=== PATIENT | male | born 1965 | race African-American/Black ===

== ENCOUNTER 2021-10-05 00:53 | Emergency (ER) | payer OTHER, MEDICAID ==
[~2021-10-05] VITALS: Ht 182.9 cm; Wt 68.0 kg
[2021-10-05] MEDS ORDERED: ONDANSETRON 4MG ODT PO STA (01:17)
[2021-10-05 02:43] LABS: BASOPHILS % 0.3 % (0.0-2.0); EOSINOPHILS % 0.5 % (0.0-5.0); HEMATOCRIT. 49.3 % (42.0-52.0); HEMOGLOBIN. 16.9 g/dL (14.0-18.0); LYMPHOCYTES % 35.1 % (20.0-50.0); MEAN CORPUSCULAR HEMOGLOBIN 32.8 pg (28.0-32.0); MEAN CORPUSCULAR VOLUME 95.8 fL (80.0-94.0); MEAN PLATELET VOLUME 8.7 fl (7.4-10.4); MONOCYTES % 6.1 % (2.0-8.0); PLATELET 168 x1000/uL (130-400); RED BLOOD CELL COUNT 5.14 mill/uL (4.7-6.1)
[2021-10-05 02:54] LABS: CHLORIDE 89 mEq/L (98-107)
[2021-10-05] MEDS ORDERED: SODIUM CHLORIDE 0.9% 1,000 ML IV ONE (03:00)
[2021-10-05] MEDS ORDERED: CHLORPROMAZINE HCL 25MG/1ML AMP IM ONE (03:00)
[2021-10-05 03:38] LABS: ETHANOL BLOOD 320 mg/dL
[2021-10-05 06:00] VITALS: BP 106/60
== END 2021-10-05 06:10 | disposition home or self-care (01) ==
LOC: ER 00:53
DX: F10.129 Alcohol abuse with intoxication, unspecified (principal); I10 Essential (primary) hypertension; Y90.8 Blood alcohol level of 240 mg/100 ml or more
CPT/HCPCS: 36415; 80053; 80320; 83690; 85025; 96360; 96372; 99283; J3230; Q0162; G0480

== ENCOUNTER 2021-10-05 07:19 | Emergency (ER) | payer MEDICAID, OTHER ==
[~2021-10-05] VITALS: Ht 182.9 cm; Wt 62.0 kg
[2021-10-05 07:25] VITALS: BP 120/57
[2021-10-05] MEDS ORDERED: ASPIRIN 81MG TABLET PO ONE (08:45)
== END 2021-10-05 08:44 | disposition left against medical advice (07) ==
LOC: ER 07:19 → CANBEDREQ 16:12
DX: R07.89 Other chest pain (principal); I10 Essential (primary) hypertension
CPT/HCPCS: 93005; 99283

== ENCOUNTER 2022-11-03 10:50 | Emergency (ER) | payer OTHER ==
[~2022-11-03] VITALS: Ht 177.8 cm; Wt 80.0 kg
[2022-11-03] MEDS ORDERED: SODIUM CHLORIDE 0.9% 1,000 ML IV ONE (11:15)
[2022-11-03 13:52] VITALS: BP 134/73
[2022-11-03 14:39] LABS: CLARITY URINE CLEAR (CLEAR); COLOR URINE YELLOW (YELLOW); KETONES URINE NEGATIVE (NEGATIVE); LEUKOCYTE ESTERASE URINE NEGATIVE (NEGATIVE); NITRITE URINE NEGATIVE (NEGATIVE); OCCULT BLOOD URINE NEGATIVE (NEGATIVE); PH URINE 5.5 (4.5-8.0); PROTEIN URINE NEGATIVE (NEGATIVE); SPECIFIC GRAVITY URINE 1.004 (1.005-1.030); UROBILINOGEN URINE 0.2 E.U./dL (0.2-1.0)
[2022-11-03 15:19] LABS: *AMPHETAMINES SCREEN URINE NEGATIVE (NEGATIVE); *BARBITURATES SCREEN URINE NEGATIVE (NEGATIVE); *BENZODIAZEPINES SCREEN URINE NEGATIVE (NEGATIVE); *COCAINE SCREEN URINE NEGATIVE (NEGATIVE); CANNABINOID URINE SCREEN NEGATIVE (NEGATIVE); METHADONE URINE SCREEN NEGATIVE (NEGATIVE); OPIATES URINE SCREEN NEGATIVE (NEGATIVE); PHENCYCLIDINE URINE SCREEN NEGATIVE (NEGATIVE)
== END 2022-11-03 14:40 | disposition left against medical advice (07) ==
LOC: ER 10:58
DX: R53.1 Weakness (principal); R55 Syncope and collapse; I10 Essential (primary) hypertension; F10.229 Alcohol dependence with intoxication, unspecified; Y90.0 Blood alcohol level of less than 20 mg/100 ml
CPT/HCPCS: 70450; 80305; 81003; 93005; 99285; J7030

== ENCOUNTER 2023-08-07 05:28 | Inpatient (IN) | payer OTHER ==
[~2023-08-07] VITALS: Ht 180.3 cm; Wt 56.2 kg
[2023-08-07] MEDS ORDERED: ONDANSETRON HCL 4MG/2ML INJ IV STA (05:35)
[2023-08-07] MEDS ORDERED: LORAZEPAM 2MG/ML CPJ IV STA (05:35)
[2023-08-07] MEDS ORDERED: FOLIC ACID 1 MG, THIAMINE HCL 100 MG, MVI, ADULT NO.1 10 ML in DEXTROSE 5% WATER 1,000 ML IV ONE ×4 (05:45)
[2023-08-07 05:57] LABS: BASOPHILS % 0.7 % (0.0-2.0); EOSINOPHILS % 0.1 % (0.0-5.0); HEMATOCRIT. 48.7 % (42.0-52.0); HEMOGLOBIN. 16.3 g/dL (14.0-18.0); LYMPHOCYTES % 36.5 % (20.0-50.0); MEAN CORPUSCULAR HEMOGLOBIN 33.1 pg (28.0-32.0); MEAN CORPUSCULAR HGB CONC 33.5 g/dL (31.0-37.0); MEAN CORPUSCULAR VOLUME 98.9 fL (80.0-94.0); MEAN PLATELET VOLUME 7.1 fl (7.4-10.4); MONOCYTES % 4.5 % (2.0-8.0); NEUTROPHILS % 58.2 % (40.0-76.0); PLATELET 324 x1000/uL (130-400); RED BLOOD CELL COUNT 4.93 mill/uL (4.7-6.1); RED CELL DISTRIBUTION WIDTH 13.9 % (11.6-14.6); WHITE BLOOD COUNT 5.4 x1000/uL (4.5-11.0)
[2023-08-07 06:13] LABS: ALANINE AMINOTRANSFERASE 63 IU/L (10-49); ALBUMIN 4.8 g/dL (3.2-4.8); AMMONIA < 10 uMol/L (<32); ASPARTATE AMINOTRANSFERASE 133 IU/L (<34); BILIRUBIN TOTAL 1.5 mg/dL (0.1-1.0); CALCIUM 9.1 mg/dL (8.7-10.4); CARBON DIOXIDE 21 mEq/L (21-32); CHLORIDE 96 mEq/L (98-107); CREATININE 1.4 mg/dL (0.6-1.3); ETHANOL BLOOD 125 mg/dL (<10); GLUCOSE 189 mg/dL (70-105); POTASSIUM 3.7 mEq/L (3.5-5.1); PROTEIN TOTAL 6.9 g/dL (6.0-8.3); SODIUM 138 mEq/L (136-145); UREA NITROGEN BLOOD 12 mg/dL (9-23)
[2023-08-07] MEDS ORDERED: LORAZEPAM 4MG/ML VIAL IV NR (06:15)
[2023-08-07] MEDS ORDERED: CHLORDIAZEPOXIDE 25MG CAPSULE PO ONE (06:15)
[2023-08-07] MEDS ORDERED: LORAZEPAM 2MG/ML CPJ IV ONE (08:15)
[2023-08-07] MEDS ORDERED: LORAZEPAM 4MG/ML VIAL IV SCH (08:45)
[2023-08-07 12:00] VITALS: BP 149/110; PULSE 119; RESP 20; TEMP 98.3
[2023-08-07] MEDS ORDERED: ACETAMINOPHEN 325MG TABLET PO PRN (14:30)
[2023-08-07] MEDS ORDERED: TRAMADOL 50MG TABLET PO PRN (14:30)
[2023-08-07] MEDS ORDERED: DOCUSATE SODIUM 100MG CAPSULE PO PRN (14:30)
[2023-08-07] MEDS ORDERED: ONDANSETRON HCL 4MG/2ML INJ IV PRN (14:30)
[2023-08-07] MEDS ORDERED: LORAZEPAM 2MG/ML CPJ IV PRN (14:30)
[2023-08-07] MEDS ORDERED: GUAIFENESIN 200MG/10ML SUGAR FREE UDC PO PRN (14:30)
[2023-08-07] MEDS ORDERED: CLONIDINE 0.1MG TABLET PO PRN (14:30)
[2023-08-07] MEDS ORDERED: NALOXONE HCL 0.4MG/ML VIAL IV PRN (14:45)
[2023-08-07] MEDS: SODIUM CHLORIDE 0.45% 1,000 ML IV SCH (15:06)
[2023-08-07] MEDS: CHLORDIAZEPOXIDE 25MG CAPSULE PO SCH ×2 (15:18→23:14)
[2023-08-07] MEDS: THIAMINE HCL 100MG TABLET PO SCH (15:18)
[2023-08-07] MEDS: AMLODIPINE 10MG TABLET PO SCH (15:19)
[2023-08-07] MEDS: MULTIVITAMINS,THER W-MINERALS TABLET PO SCH (15:19)
[2023-08-07 16:00] VITALS: BP 176/115; PULSE 113; RESP 18; TEMP 97.4
[2023-08-07 20:00] VITALS: BP 125/88; PULSE 112; RESP 18; TEMP 97.3
[2023-08-07] MEDS: LORAZEPAM 4MG/ML VIAL IV PRN (22:09)
[2023-08-08] VITALS: BP 136/93; PULSE 110; RESP 16; TEMP 97
[2023-08-08 04:00] VITALS: BP 125/87; PULSE 105; RESP 18; TEMP 97.4
[2023-08-08] MEDS: CHLORDIAZEPOXIDE 25MG CAPSULE PO SCH ×3 (06:35→21:08)
[2023-08-08] MEDS: SODIUM CHLORIDE 0.45% 1,000 ML IV SCH ×2 (06:35→20:19)
[2023-08-08 08:00] VITALS: BP 121/81; PULSE 77; RESP 18; TEMP 97.5
[2023-08-08] MEDS: FOLIC ACID 1MG TABLET PO SCH (09:02)
[2023-08-08] MEDS: THIAMINE HCL 100MG TABLET PO SCH (09:02)
[2023-08-08] MEDS: MULTIVITAMINS,THER W-MINERALS TABLET PO SCH (09:02)
[2023-08-08] MEDS: AMLODIPINE 10MG TABLET PO SCH (09:03)
[2023-08-08 09:24] LABS: BASOPHILS % 0.8 % (0.0-2.0); EOSINOPHILS % 1.1 % (0.0-5.0); HEMATOCRIT. 43.3 % (42.0-52.0); HEMOGLOBIN. 14.6 g/dL (14.0-18.0); LYMPHOCYTES % 35.7 % (20.0-50.0); MEAN CORPUSCULAR HEMOGLOBIN 33.2 pg (28.0-32.0); MEAN CORPUSCULAR HGB CONC 33.7 g/dL (31.0-37.0); MEAN CORPUSCULAR VOLUME 98.5 fL (80.0-94.0); MONOCYTES % 5.6 % (2.0-8.0); NEUTROPHILS % 56.8 % (40.0-76.0); PLATELET 193 x1000/uL (130-400); RED BLOOD CELL COUNT 4.39 mill/uL (4.7-6.1); RED CELL DISTRIBUTION WIDTH 13.7 % (11.6-14.6); WHITE BLOOD COUNT 4.5 x1000/uL (4.5-11.0)
[2023-08-08 09:26] LABS: ALANINE AMINOTRANSFERASE 66 IU/L (10-49); ALBUMIN 4.1 g/dL (3.2-4.8); ASPARTATE AMINOTRANSFERASE 180 IU/L (<34); CALCIUM 9.2 mg/dL (8.7-10.4); CARBON DIOXIDE 26 mEq/L (21-32); CHLORIDE 97 mEq/L (98-107); CHOLESTEROL 159 mg/dL (<200); CREATININE 1.2 mg/dL (0.6-1.3); GLUCOSE 116 mg/dL (70-105); HDL CHOLESTEROL 79 mg/dL (>55); LDL CHOLESTEROL 87 mg/dL (5-100); POTASSIUM 3.4 mEq/L (3.5-5.1); PROTEIN TOTAL 5.9 g/dL (6.0-8.3); SODIUM 136 mEq/L (136-145); TRIGLYCERIDE 105 mg/dL (0-150); UREA NITROGEN BLOOD 18 mg/dL (9-23)
[2023-08-08 12:00] VITALS: BP 118/67; PULSE 103; RESP 18; TEMP 97
[2023-08-08] MEDS ORDERED: POTASSIUM CHLORIDE 20MEQ TABLET SR PO NR (12:00)
[2023-08-08 16:00] VITALS: BP 125/82; PULSE 109; RESP 20; TEMP 97.5
[2023-08-08 20:00] VITALS: BP 152/78; PULSE 101; RESP 20; TEMP 97.5
[2023-08-09] VITALS: BP 132/82; PULSE 87; RESP 20; TEMP 97.3
[2023-08-09 04:00] VITALS: BP 137/86; PULSE 93; RESP 16; TEMP 97.5
[2023-08-09] MEDS: CHLORDIAZEPOXIDE 25MG CAPSULE PO SCH ×2 (05:11→12:40)
[2023-08-09 08:00] VITALS: BP 127/82; PULSE 87; RESP 18; TEMP 97.6
[2023-08-09] MEDS: THIAMINE HCL 100MG TABLET PO SCH (08:49)
[2023-08-09] MEDS: FOLIC ACID 1MG TABLET PO SCH (08:49)
[2023-08-09] MEDS: MULTIVITAMINS,THER W-MINERALS TABLET PO SCH (08:49)
[2023-08-09] MEDS: AMLODIPINE 10MG TABLET PO SCH (08:49)
[2023-08-09 08:56] VITALS: RESP 16
[2023-08-09] MEDS: SODIUM CHLORIDE 0.45% 1,000 ML IV SCH (08:56)
[2023-08-09] MEDS: LORAZEPAM 4MG/ML VIAL IV PRN (11:12)
[2023-08-09 14:10] VITALS: BP 126/86; PULSE 86; TEMP 97.7; O2SAT 99
[2023-08-09] MEDS ORDERED: LORAZEPAM 2MG/ML CPJ IV PRN (14:49)
== END 2023-08-09 15:35 | disposition short-term general hospital (02) | DRG 897 ==
LOC: ER 05:28 → 7WST 08:23 → 6WST 08-09 10:55
PROVIDERS: ADMIT Hospitalist; ATTEND Hospitalist
DX: F10.229 Alcohol dependence with intoxication, unspecified (principal); N17.9 Acute kidney failure, unspecified; F10.239 Alcohol dependence with withdrawal, unspecified; R73.9 Hyperglycemia, unspecified; I10 Essential (primary) hypertension; Z82.49 Family history of ischemic heart disease and other diseases of the circulatory system; Y90.6 Blood alcohol level of 120-199 mg/100 ml
CPT/HCPCS: 36415; 71045; 80053; 80061; 80320; 82140; 83036; 85025; 93005; 97162; 97166; 99285; J2060; J2405; J3411; J3490; J7070; G0480

== ENCOUNTER 2023-11-03 17:57 | Emergency (ER) | payer OTHER ==
[~2023-11-03] VITALS: Ht 175.3 cm; Wt 61.0 kg
[2023-11-03 17:59] VITALS: O2SAT 100
[2023-11-03] MEDS ORDERED: lorazepam (17:59)
[2023-11-03] MEDS ORDERED: metoprolol (17:59)
[2023-11-03] MEDS: CEFTRIAXONE 1GM/50ML 50 ML IV ONE (18:44)
[2023-11-03] MEDS: SODIUM CHLORIDE 0.9% 1000ML BAG (SEPSIS BOLUS) IV ONE (18:44)
[2023-11-03] MEDS: LORAZEPAM 2MG/ML INJ IV ONE (19:06)
[2023-11-03 20:25] LABS: BASOPHILS % 0.4 % (0.0-2.0); EOSINOPHILS % 0.8 % (0.0-5.0); HEMATOCRIT. 37.9 % (42.0-52.0); HEMOGLOBIN. 12.6 g/dL (14.0-18.0); LYMPHOCYTES % 31.5 % (20.0-50.0); MEAN CORPUSCULAR HEMOGLOBIN 32.8 pg (28.0-32.0); MEAN CORPUSCULAR HGB CONC 33.3 g/dL (31.0-37.0); MEAN CORPUSCULAR VOLUME 98.5 fL (80.0-94.0); MEAN PLATELET VOLUME 8.2 fl (7.4-10.4); MONOCYTES % 9.1 % (2.0-8.0); NEUTROPHILS % 58.2 % (40.0-76.0); PLATELET 88 x1000/uL (130-400); RED BLOOD CELL COUNT 3.85 mill/uL (4.7-6.1); RED CELL DISTRIBUTION WIDTH 14.4 % (11.6-14.6); WHITE BLOOD COUNT 3.2 x1000/uL (4.5-11.0)
[2023-11-03 20:34] LABS: PROTHROMBIN TIME 11.4 sec (9.6-11.0)
[2023-11-03 20:45] LABS: ALANINE AMINOTRANSFERASE 69 IU/L (10-49); ALBUMIN 3.9 g/dL (3.2-4.8); ASPARTATE AMINOTRANSFERASE 217 IU/L (<34); BILIRUBIN TOTAL 0.6 mg/dL (0.1-1.0); CALCIUM 8.4 mg/dL (8.7-10.4); CARBON DIOXIDE 27 mEq/L (21-32); CHLORIDE 102 mEq/L (98-107); CREATINE KINASE 216 IU/L (46-171); ETHANOL BLOOD 15 mg/dL (<10); GLUCOSE 164 mg/dL (70-105); POTASSIUM 3.6 mEq/L (3.5-5.1); PROTEIN TOTAL 6.1 g/dL (6.0-8.3); SODIUM 139 mEq/L (136-145); TROPONIN I HIGH SENSITIVITY 12 ng/L (3.0-53); UREA NITROGEN BLOOD 12 mg/dL (9-23)
[2023-11-03 21:40] LABS: CLARITY URINE CLEAR (CLEAR); COLOR URINE ORANGE (YELLOW); GLUCOSE URINE NEGATIVE (NEGATIVE); KETONES URINE 2+ (NEGATIVE); LEUKOCYTE ESTERASE URINE TRACE (NEGATIVE); NITRITE URINE NEGATIVE (NEGATIVE); OCCULT BLOOD URINE NEGATIVE (NEGATIVE); PROTEIN URINE 2+ (NEGATIVE); SPECIFIC GRAVITY URINE 1.023 (1.005-1.030)
[2023-11-03 21:57] LABS: BACTERIA URINE 1+; RBC URINE 0-2 /hpf (0-2); SQUAMOUS EPITHELIAL CELL URINE 1+ /lpf (RARE/1+)
[2023-11-03 21:58] LABS: WBC URINE 0-2 /hpf (0-2)
[2023-11-03 22:03] LABS: *AMPHETAMINES SCREEN URINE NEGATIVE (NEGATIVE); *BARBITURATES SCREEN URINE NEGATIVE (NEGATIVE); *BENZODIAZEPINES SCREEN URINE NEGATIVE (NEGATIVE); *COCAINE SCREEN URINE NEGATIVE (NEGATIVE); CANNABINOID URINE SCREEN PRESUMPTIVE POSITIVE (NEGATIVE); ECSTASY MDMA SCREEN URINE NEGATIVE (NEGATIVE); METHADONE URINE SCREEN Neg (NEGATIVE); OPIATES URINE SCREEN NEGATIVE (NEGATIVE); PHENCYCLIDINE URINE SCREEN NEGATIVE (NEGATIVE)
[2023-11-03 23:12] VITALS: BP 151/83; PULSE 82; RESP 16; TEMP 98.9
== END 2023-11-03 23:23 | disposition left against medical advice (07) ==
LOC: ER 17:57
DX: F10.239 Alcohol dependence with withdrawal, unspecified (principal); E86.0 Dehydration; R55 Syncope and collapse; F41.9 Anxiety disorder, unspecified; I10 Essential (primary) hypertension; Y90.9 Presence of alcohol in blood, level not specified
CPT/HCPCS: 80053; 80305; 81003; 80320; 82550; 83605; 83690; 83735; 85025; 85610; 86850; 86900; 86901; 87040; 84484; 36415; 84145; 71045; 70450; 93005; 96365; 96375; 99285; J0696; J2060; J7030; Z7610; G0480